=== PATIENT | female | born 2005 | race Two or more races ===

== ENCOUNTER 2024-10-04 10:33 | Emergency (ER) | payer MEDICAID, SELFPAY ==
[2024-10-04 10:34] VITALS: BMI 29.9
[2024-10-04 10:50] VITALS: BP 102/64; PULSE 74; RESP 17; TEMP 37; O2SAT 98
--- NOTE | 2024-10-04 10:51 | XR_ITS ---
Examination: Lumbar spine 3 views Technique one AP lateral coned lateral lower lumbar spine 3 views Date and time: 06/06/2024 1152 hours INDICATIONS: Sudden onset lower back pain beginning 2 days ago. FINDINGS: Adequate alignment lumbar vertebral bodies No lumbar fracture Mild disc narrowing posteriorly L5-S1 No spondylolisthesis IMPRESSION: Mild disc narrowing posteriorly L5-S1
--- NOTE | 2024-10-04 10:52 | PD.EDBACK ---
ED Back Injury Pain RME/HPI General Chief Complaint: Back Pain/Injury Stated Complaint: SEVERE BACK PAIN STARTING YESTERDAY AM; 01/03 Time Seen by Provider: 10/04/24 10:44 Source: patient Arrival date/time: 10/04/24 10:33 19-year-old female with no known medical history presents to the emergency room with a chief complaint of lumbar back pain that is a 9 out of 10 in severity that began yesterday morning. Mode of arrival: ambulatory Limitations: no limitations Related Data Previous Rx's ?Medication ?Instructions ?Recorded ibuprofen 800 mg tablet 800 mg PO TID PRN pain #30 tabs 09/08/20 Allergies Allergy/AdvReac Type Severity Reaction Status Date / Time No Known Allergies Allergy Verified 10/04/24 10:37 Review of Systems Review of Systems Systems Reviewed: All systems reviewed, normal except as documented Constitutional Constitutional: Reports system reviewed and no additional complaints, except as documented, Denies fatigue, Denies fever(s), Denies headache(s) and Denies weakness Eyes Eyes: Reports system reviewed and no additional complaints, except as documented, Denies blurry vision and Denies change in vision ENT Ears, Nose, Mouth, and Throat: Reports system reviewed and no additional complaints, except as documented, Denies otalgia, Denies headache(s), Denies nasal congestion, Denies throat swelling and Denies vertigo Cardiovascular Cardiovascular: Reports system reviewed and no additional complaints, except as documented, Denies chest pain, Denies dyspnea and Denies dyspnea on exertion Respiratory Respiratory: Reports system reviewed and no additional complaints, except as documented, Denies chest congestion, Denies cough, Denies dyspnea, Denies dyspnea on exertion and Denies wheezing Gastrointestinal Gastrointestinal: Reports system reviewed and no additional complaints, except as documented, Denies abdominal pain, Denies cramping, Denies nausea and Denies vomiting Genitourinary Genitourinary: Reports system reviewed and no additional complaints, except as documented Musculoskeletal Musculoskeletal: Reports system reviewed and no additional complaints, except as documented and Reports back pain Integumentary/Breasts Skin/Breast: Reports system reviewed and no additional complaints, except as documented and Denies wounds Neurologic Neurologic: Reports system reviewed and no additional complaints, except as documented, Denies confusion, Denies headache(s), Denies lack of coordination, Denies vertigo and Denies weakness Psychiatric Psychiatric: Reports system reviewed and no additional complaints, except as documented, Denies anxiety, Denies confusion, Denies depression, Denies paranoia, Denies suicidal ideation and Denies tactile hallucinations Endocrine Endocrine: Reports system reviewed and no additional complaints, except as documented and Denies fatigue Hematologic/Lymphatic Hematologic/Lymphatic: Reports system reviewed and no additional complaints, except as documented and Denies lymphadenopathy Allergic/Immunologic Allergic/Immunologic: Reports system reviewed and no additional complaints, except as documented, Denies throat swelling, Denies urticaria and Denies wheezing Past Medical History Past Medical History CARDIAC: Negative Congestive Heart Failure RESPIRATORY: Positive Asthma; Negative Chronic Obstructive Pulmonary Disease (COPD) GENITOURINARY: Negative Renal Disease ENDOCRINE: Negative Diabetes Mellitus Type 1 or Diabetes Mellitus Type 2 Social History SMOKING STATUS: Current some day smoker ED Exam General Limitations: Present no limitations General appearance: Present alert and in no apparent distress Head Head exam: Present atraumatic Eye Eye exam: Present normal appearance, PERRL and EOMI ENT ENT exam: Present normal exam, normal oropharynx and mucous membranes moist Neck Neck exam: Present normal inspection, full ROM and trachea midline Chest Chest inspection: Present normal inspection and symmetric chest wall rise Respiratory Respiratory exam: Present normal lung sounds bilaterally Cardiovascular Cardiovascular exam: Present regular rate, normal rhythm and normal heart sounds Abdominal Exam Abdominal exam: Present soft and normal bowel sounds Extremities Exam Extremities exam: Present normal inspection and full ROM Back Exam Back exam: Present normal inspection, full ROM and vertebral tenderness Back 1 view image:  1. Tenderness with palpation of the lumbar spine Neurological Exam Neurological exam: Present alert, oriented X3 and CN II-XII intact Psychiatric Psychiatric exam: Present normal affect and normal mood Skin Skin exam: Present warm, dry, intact and normal color Course Quality Measures none Orders Category Date Time Status XR lumbar spine 2-3V Stat Exams 10/04/24 10:51 Completed HCG Qualitative,Urine Stat Lab 10/04/24 11:10 Completed Ketorolac Inj [Toradol Inj] Med 10/04/24 12:23 Discontinued 30 mg IM X1 ONE Vital Signs Vital signs: Vital Signs Temperature 98.6 F 10/04/24 10:50 Pulse Rate 74 10/04/24 10:50 Respiratory Rate 17 10/04/24 10:50 Blood Pressure 102/64 10/04/24 10:50 Pulse Oximetry (%) 98 10/04/24 10:50 Oxygen Delivery Method Room Air 10/04/24 10:50 Back Pain / Injury MDM Narrative MDM Narrative:: 19-year-old female with no known medical history presents to the emergency room with a chief complaint of lumbar back pain that is a 9 out of 10 in severity that began yesterday morning. Patient is hemodynamically stable and in no apparent distress Physical examination shows tenderness with palpation of the lumbar area of her spine. There is no CVA tenderness no thoracic tenderness. The patient denies any saddle anesthesia any loss of bowel or bladder function or any numbness to the lower extremities. The patient has a normal steady gait X-ray of the lumbar spine was completed and was negative for any acute fracture or dislocation Patient was discharged and educated to follow-up with primary care provider in the next 24 to 48 hours and return to the emergency room for any evidence of worsening signs or symptoms Patient data External records reviewed:: [facility] previous records Clinical information provided by:: patient Social determinants that could affect healthcare access:: none Patient has the following chronic illnesses:: No chronic illness How is presenting disease/condition affected by chronic disease/condition?: no chronic disease Evaluation data The following diagnostics were reviewed and interpreted by me:: lab results and radiology exam(s) Lab and/or radiology exams considered but not ordered:: Labs and radiology exams considered and ordered Interpretation Summary: Lumbar back [id number]: Adequate alignment lumbar vertebral bodies No lumbar fracture Mild disc narrowing posteriorly L5-S1 No spondylolisthesis IMPRESSION: Mild disc narrowing posteriorly L5-S1 Medications / Prescriptions Medications or Prescriptions considered but not ordered:: Medication given Medication administrations:: Medication Administration History Discontinued Medications Ketorolac Tromethamine (Ketorolac Inj 60 Mg/2 Ml Vial) 30 mg IM X1 ONE Stop: 10/04/24 12:24 Last Admin: 10/04/24 12:32 Dose: 30 mg Documented By: EF Medication given Consultations Consultation(s) initiated? (list below): No Diagnosis Differential diagnosis back pain/injury: lumbar radiculopathy and strain of lumbar region Most likely diagnosis given after review of the tests above:: Strain of lumbar region Admission Indicated Admission indicated?: not indicated Admission Request Was there a request for admission?: No Disposition Plan Disposition Plan: Discharge Discharge Attestation Discharge Attestation: The patient and all family members were given an opportunity to ask questions and understood the discharge instructions. Discharge instructions specifically effects, indications for sooner follow up or return to the emergency department, and the expected course of current diagnosis. Patient condition: Stable Discharge Plan Plan Patient Disposition: HOME (Self Care) Discharge Disposition comment: Stable Prescriptions/Referrals Prescriptions/Med Rec: No Action ibuprofen 800 mg tablet 800 mg PO TID PRN (Reason: pain) Qty: 30 0RF Referrals: Chuyita Blair PA-C [Primary Care Provider] - In 1 week Problem List Clinical Impression: Strain of lumbar region Patient/Caregiver Discharge Instructions Education Materials: ED Back Sprain/Strain Additional Instructions: Please follow-up with your primary care provider in the next 24 to 48 hours X-rays of your lumbar spine were completed and were negative for any acute fracture or dislocation For any evidence of worsening signs or symptoms return to the emergency room immediately Print Language: Surinamese Stand Alone Forms: Cherelle Award Info., Work/School Release, Patient Portal Info Letter PA/LUIGI Supervising Physician KAYLEIGH/LUIGI Supervising Physician: Dr. Garza
[2024-10-04 11:28] LABS: HCG Qualitative,Urine Negative
[2024-10-04] MEDS: KETOROLAC INJ 60 MG/2 ML VIAL 30 MG IM (12:32)
[2024-10-04 12:34] VITALS: BP 112/73; PULSE 69; RESP 15; TEMP 36.6; O2SAT 97
== END 2024-10-04 12:40 | disposition home or self-care (01) ==
PROVIDERS: Nurse Practitioner Family; Emergency Provider Emergency Medicine; PCP Physician Assistant Medical
DX: S39.012A Strain of muscle, fascia and tendon of lower back, initial encounter (principal); X58.XXXA Exposure to other specified factors, initial encounter
CPT/HCPCS: 72100; 81025; 96372; 99283; J1885